=== PATIENT | female | born 1995 | race Two or more races ===

== ENCOUNTER 2020-09-29 01:20 | Emergency (ER) | payer OTHER ==
[~2020-09-29] VITALS: Ht 162.6 cm; Wt 87.5 kg
[2020-09-29] MEDS ORDERED: PRENATA CHEWAB1 EACH (01:29)
== END 2020-09-29 01:43 | disposition home or self-care (01) ==
LOC: ER 01:20
DX: O26.892 Other specified pregnancy related conditions, second trimester (principal); M94.0 Chondrocostal junction syndrome [Tietze]; Z3A.23 23 weeks gestation of pregnancy

== ENCOUNTER 2021-01-16 02:24 | Inpatient (IN) | payer OTHER ==
[~2021-01-16] VITALS: Ht 162.6 cm; Wt 3.2 kg
[~2021-01-16 02:24] MED LIST: PRENATA CHEWAB1 EACH
[2021-01-16] MEDS ORDERED: VALACYCLOVIR500 MG PO (03:07)
[2021-01-19] MEDS ORDERED: IBUPROFEN800 MG PO (14:29)
[2021-01-19] MEDS ORDERED: DOCUSATE SODIU100 MG PO (14:30)
== END 2021-01-19 15:01 | disposition home or self-care (01) | DRG 788 ==
LOC: OB/GYN 02:24 → LDR 02:24 → OB/GYN 18:49
PROVIDERS: ADMIT Obstetrics & Gynecology; ATTEND Obstetrics & Gynecology
PROC: 4A1HXFZ Monitoring of Products of Conception, Cardiac Rhythm, External Approach (ICD-10-PCS; 2021-01-16)
PROC: 3E033VJ Introduction of Other Hormone into Peripheral Vein, Percutaneous Approach (ICD-10-PCS; 2021-01-16)
PROC: 10D00Z1 Extraction of Products of Conception, Low, Open Approach (ICD-10-PCS; principal; 2021-01-16 15:30)
DX: O99.824 Streptococcus B carrier state complicating childbirth (principal); Z3A.39 39 weeks gestation of pregnancy; Z37.0 Single live birth; Z20.822 Contact with and (suspected) exposure to COVID-19

== ENCOUNTER 2023-12-28 15:47 | Emergency (ER) | payer OTHER ==
[~2023-12-28] VITALS: Ht 162.6 cm; Wt 75.3 kg
[~2023-12-28 15:47] MED LIST changes: +DOCUSATE SODIU100 MG PO; +IBUPROFEN800 MG PO; +VALACYCLOVIR500 MG PO
[2023-12-28] MEDS ORDERED: 0.9 % SODIUM CHLORIDE 1,000 ML IV STA (16:37)
[2023-12-28 18:31] LABS: PH,URINE 5.5 (5.0-8.0); URINE APPEARANCE Clear; URINE BILIRRUBIN Negative (NEGATIVE); URINE BLOOD Moderate; URINE COLOR Yellow; URINE GLUCOSE Negative (NEGATIVE); URINE LEUKOCYTE Negative; URINE NITRATE Negative; URINE PROTEIN Negative (NEGATIVE); URINE UROBILINOGEN 0.2 E.U./dl
[2023-12-28 18:32] LABS: HEMOGLOBIN 12.2 g/dL (12.0-15.00); MEAN CORPUSCULAR HEMOGLOBIN 25.1 pg (27.00-32.0); MEAN CORPUSCULAR HGB CONC 33.1 g/dl (32.0-36.0); PLATELET COUNT 354 K/uL (150-450); RED BLOOD COUNT 4.86 M/uL (4.00-6.00)
[2023-12-28 18:32] LABS: URINE EPITHELIAL CELLS 10.8 uL (0.0-38.8); URINE WBC 4.6 uL (0.0-23.2)
[2023-12-28 19:11] LABS: CALCIUM 8.7 mg/dL (8.5-10.1); CREATININE SERUM 0.74 mg/dL (0.55-1.02); GFR 93.45; POTASSIUM 3.72 mEq/L (3.5-5.1)
== END 2023-12-28 19:08 | disposition home or self-care (01) ==
LOC: ER 15:47
PROVIDERS: Emergency Medicine
DX: O20.9 Hemorrhage in early pregnancy, unspecified (principal); Z3A.08 8 weeks gestation of pregnancy

== ENCOUNTER 2024-04-10 10:56 | Outpatient (CLI) | payer OTHER | END 2024-04-10 10:57 | disposition home or self-care (01) | LOC: PRENATAL 10:56 | PROVIDERS: ATTEND Obstetrics & Gynecology Maternal & Fetal Medicine | DX: O35.9XX0 Maternal care for (suspected) fetal abnormality and damage, unspecified, not applicable or unspecified (principal); O35.3XX0 Maternal care for (suspected) damage to fetus from viral disease in mother, not applicable or unspecified; O44.00 Complete placenta previa NOS or without hemorrhage, unspecified trimester; O34.219 Maternal care for unspecified type scar from previous cesarean delivery; Z3A.20 20 weeks gestation of pregnancy ==

== ENCOUNTER → 2024-05-22 14:08 | Outpatient (CLI) | payer OTHER | END | disposition home or self-care (01) | LOC: PRENATAL 14:08 | PROVIDERS: ATTEND Obstetrics & Gynecology Maternal & Fetal Medicine | DX: O26.849 Uterine size-date discrepancy, unspecified trimester (principal); O34.219 Maternal care for unspecified type scar from previous cesarean delivery; Z3A.26 26 weeks gestation of pregnancy ==

== ENCOUNTER 2024-07-03 09:48 | Outpatient (CLI) | payer OTHER | END 2024-07-03 09:49 | disposition home or self-care (01) | LOC: PRENATAL 09:48 | PROVIDERS: ATTEND Obstetrics & Gynecology Maternal & Fetal Medicine | DX: O26.849 Uterine size-date discrepancy, unspecified trimester (principal); O36.8199 Decreased fetal movements, unspecified trimester, other fetus; O34.219 Maternal care for unspecified type scar from previous cesarean delivery; Z3A.32 32 weeks gestation of pregnancy ==

== ENCOUNTER 2024-08-11 07:45 | Inpatient (IN) | payer OTHER ==
[~2024-08-11] VITALS: Ht 162.6 cm; Wt 3.6 kg
[2024-08-11 09:22] LABS: HEMATOCRIT 33.3 % (36.0-45.00); HEMOGLOBIN 11.2 g/dL (12.0-15.00); MEAN CORPUSCULAR HEMOGLOBIN 26.3 pg (27.00-32.0); MEAN CORPUSCULAR HGB CONC 33.8 g/dl (32.0-36.0); PLATELET COUNT 257 K/uL (150-450); RED BLOOD COUNT 4.27 M/uL (4.00-6.00)
[2024-08-11 09:22] LABS: PH,URINE 6.5 (5.0-8.0); URINE APPEARANCE Clear; URINE BILIRRUBIN Negative (NEGATIVE); URINE BLOOD Negative; URINE COLOR Yellow; URINE GLUCOSE Negative (NEGATIVE); URINE KETONE Negative (NEGATIVE); URINE LEUKOCYTE Trace; URINE NITRATE Negative; URINE PROTEIN Negative (NEGATIVE)
[2024-08-11 09:44] LABS: INR 0.97; PARTIAL THROMBOPLASTIN TIME 29.8 SECONDS (22.0-34.0); PROTHROMBIN TIME 10.6 SECONDS (9.0-11.5)
[2024-08-11 10:14] LABS: URINE BACTERIA 709.2 uL (0.0-1933); URINE RBC 1.9 uL (0.0-20.8); URINE WBC 29.8 uL (0.0-23.2)
[2024-08-11 10:24] LABS: ALBUMIN 2.7 gm/dL (3.4-5.0); BILIRUBIN TOTAL 0.55 mg/dL (0.3-1.2); CALCIUM 8.6 mg/dL (8.5-10.1); CREATININE SERUM 0.5 mg/dL (0.55-1.02); GFR 146.91; GLOBULINA 3.7 G/DL (2.4-3.5); POTASSIUM 3.94 mEq/L (3.5-5.1); TOTAL PROTEIN 6.4 gm/dL (6.4-8.2)
[2024-08-11 12:56] LABS: RH POSITIVE
[2024-08-21] MEDS ORDERED: PRENATAL + DHA1 EAC1 PO (07:27)
[2024-08-21] MEDS ORDERED: VALTREX1000 MG PO (07:28)
[2024-08-21 07:29] VITALS: BP 90/65
[2024-08-21] MEDS ORDERED: OXYTOCIN 10 UNITS/ML VIAL IV ONE (13:45)
[2024-08-21] MEDS ORDERED: ERYTHROMYCIN BASE OPHT 1GM EACH TUBE OP ONE (13:45)
[2024-08-21] MEDS ORDERED: CEFAZOLIN SODIUM 1,000 MG VIAL IV ONE (13:45)
[2024-08-21] MEDS ORDERED: MORPHINE SULFATE 4 MG/ML VIAL IV ONE ×2 (15:30→16:00)
[2024-08-21] MEDS ORDERED: MORPHINE SULFATE 4 MG/ML CARTRIDGE IV PRN (17:30)
[2024-08-21] MEDS ORDERED: OXYTOCIN 1,000 ML IV SCH (17:30)
[2024-08-21] MEDS ORDERED: RINGERS SOLUTION,LACTATED 1,000 ML IV SCH (17:30)
[2024-08-21] MEDS ORDERED: IBUprofen 800 MG TABLET PO PRN (17:30)
[2024-08-21 17:51] LABS: HEMATOCRIT 34.1 % (36.0-45.00); HEMOGLOBIN 11.3 g/dL (12.0-15.00); MEAN CELL VOLUME 78.8 fL (80.00-100.00); MEAN CORPUSCULAR HEMOGLOBIN 26.1 pg (27.00-32.0); MEAN CORPUSCULAR HGB CONC 33.1 g/dl (32.0-36.0); PLATELET COUNT 255 K/uL (150-450); RED BLOOD COUNT 4.32 M/uL (4.00-6.00); RED CELL DISTRIBUTION WIDTH 15.3 % (11.5-14.5)
[2024-08-21] MEDS ORDERED: SIMETHICONE 125 MG CAPSULE PO SCH (18:00)
[2024-08-21 20:30] VITALS: BP 111/68
[2024-08-22 01:15] VITALS: BP 124/77
[2024-08-22 08:07] VITALS: BP 104/66
[2024-08-22] MEDS ORDERED: DOCUSATE SODIUM 100MG CAP PO SCH (09:00)
[2024-08-22 14:04] VITALS: BP 105/70
[2024-08-22 15:43] VITALS: BP 127/72
[2024-08-22 20:22] VITALS: BP 115/71
[2024-08-23 00:35] VITALS: BP 118/78
[2024-08-23 07:53] VITALS: BP 122/68
[2024-08-23 12:50] VITALS: BP 119/71
[2024-08-23 16:36] VITALS: BP 108/71
[2024-08-24 00:45] VITALS: BP 101/66
[2024-08-24 08:22] VITALS: BP 119/74
== END 2024-08-24 15:17 | disposition home or self-care (01) | DRG 785 ==
LOC: OB/GYN 08-21 07:08 → O/R 08-21 07:08 → OB/GYN 08-21 07:45
PROVIDERS: ADMIT Obstetrics & Gynecology; ATTEND Obstetrics & Gynecology
PROC: 0UB70ZZ Excision of Bilateral Fallopian Tubes, Open Approach (ICD-10-PCS; 2024-08-21)
PROC: 4A1HXCZ Monitoring of Products of Conception, Cardiac Rate, External Approach (ICD-10-PCS; 2024-08-21)
PROC: 10D00Z1 Extraction of Products of Conception, Low, Open Approach (ICD-10-PCS; principal; 2024-08-21 14:45)
DX: O36.63X0 Maternal care for excessive fetal growth, third trimester, not applicable or unspecified (principal); O34.211 Maternal care for low transverse scar from previous cesarean delivery; Z3A.39 39 weeks gestation of pregnancy; Z37.0 Single live birth; Z30.2 Encounter for sterilization; Z20.822 Contact with and (suspected) exposure to COVID-19